=== PATIENT | female | born 1970 | race Caucasian/White ===

== ENCOUNTER → 2017-12-13 14:31 | Outpatient (CLI) | payer OTHER, SELFPAY ==
[2017-11-01 16:22] VITALS: BP 116/79; BMI 32.3
--- NOTE | 2017-12-13 14:35 | HPBI_ITS ---
MAMMOGRAPHY - BILATERAL SCREENING REASON FOR EXAM: Female, 47 years old. Routine annual screening examination. PERTINENT HISTORY: Mother with breast cancer. Grandmother with breast cancer. TECHNIQUE: Digital bilateral breast neva (3D mammographic acquisition) in the CC and MLO projections. 2-D mediolateral oblique (MLO) and craniocaudad (CC) views of both breasts were obtained. CAD: Full Field Digital Mammography with Computer Added Detection was performed. COMPARISON: Comparison is made with prior outside examination dated August 17, 2016. FINDINGS: Breast Composition: There are scattered areas of fibroglandular density. There are no dominant masses or suspicious calcifications. No other significant abnormalities are identified. There has been no significant change since the prior study. HPBI/SCREENING MAMM (CAD), BILAT IMPRESSION: Stable bilateral screening mammogram. Yearly follow-up mammogram recommended. (A) ASSESSMENT CATEGORY: BIRADS Category 1: Negative. A letter regarding these results will be sent to the patient by the facility within 30 days. Approximately 10% of breast cancers are not detected by mammography. A normal mammogram should not delay biopsy of a clinically suspicious abnormality. [id number] Electronically Signed: Moustapha Stanley MD at 15:31 EST Tel [phone], Service support ,
== END ==
PROVIDERS: Family Provider Family Medicine; PCP Family Medicine; Visit Provider Obstetrics & Gynecology
DX: Z12.31 Encounter for screening mammogram for malignant neoplasm of breast (principal)
CPT/HCPCS: 77063; 77067

== ENCOUNTER → 2019-01-19 15:20 | Outpatient (CLI) | payer OTHER, SELFPAY ==
--- NOTE | 2019-01-19 15:24 | BI_ITS ---
MAMMOGRAPHY - BILATERAL SCREENING 3-D CYNDI SYNTHESIS REASON FOR EXAM: Female, 48 years old. Bilateral Screening 3-D tomosynthesis PERTINENT HISTORY: Family history of breast cancer in mother. Used progesterone for 5 years. TECHNIQUE: 2-D mammograms and 3-D Cyndi synthesis of the breast (s) were performed. CAD was performed. COMPARISON: December 23, 2017, August 17, 2016 FINDINGS: The breast composition is almost entirely fat. Scattered benign calcifications are seen. No dense spiculated masses or suspicious microcalcifications are identified. No architectural distortion is identified. There is no skin thickening or retraction. There has been no significant change since the prior study. BI/SCREEN MAMM (CAD) W/CYNDI BILAT IMPRESSION: No mammographic signs of malignancy. Routine yearly mammograms recommended. ASSESSMENT CATEGORY: BIRADS Category 1: Negative. A letter regarding these results will be sent to the patient by the facility within 30 days. FOLLOW UP RECOMMENDATION: Yearly follow up mammogram recommended. (A) Approximately 10% of breast cancers are not detected by mammography. A normal mammogram should not delay biopsy of a clinically suspicious abnormality. Electronically Signed: Dontae Browning MD at 13:53 EDT , Service support ,
== END ==
PROVIDERS: Family Provider Family Medicine; PCP Family Medicine; Referring Provider Obstetrics & Gynecology; Visit Provider Obstetrics & Gynecology
DX: Z12.31 Encounter for screening mammogram for malignant neoplasm of breast (principal)
CPT/HCPCS: 77063; 77067

== ENCOUNTER → 2019-03-31 | Outpatient (CLI) | payer OTHER, SELFPAY ==
[2019-03-31 16:45] VITALS: BMI 32.3
[2019-03-31 21:50] LABS: Chlamydia Trachomatis by PCR Negative (Negative); Neisserai gonorrhoeae by PCR Negative (Negative); Probe Check PASS; Sample Adequacy Control PASS; Specimen Processing Control PASS
[2019-04-03 12:23] LABS: HPV APTIMA, High Risk Negative (Negative)
== END | disposition home or self-care (01) ==
PROVIDERS: Family Provider Family Medicine; PCP Family Medicine; Referring Provider Obstetrics & Gynecology; Visit Provider Obstetrics & Gynecology
DX: N89.8 Other specified noninflammatory disorders of vagina (principal); Z12.4 Encounter for screening for malignant neoplasm of cervix
CPT/HCPCS: 87491; 87591; 87624; 88175; G0145

== ENCOUNTER → 2019-04-04 | Outpatient (CLI) | payer OTHER, SELFPAY ==
[2019-03-31 16:45] VITALS: BMI 32.3
[2019-04-06 10:29] LABS: HIV - WCH Non-Reactive (Nonreactive)
[2019-04-06 14:07] LABS: HCV Quant. RNA PCR 20 IU/mL (.); HEPATITIS B SURFACE AG Negative (Negative); Hepatitis A IgM Antibody Negative (Negative); Hepatitis B Core AB IgM Negative (Negative)
[2019-04-07 12:04] LABS: HCV log 10 1.301 (.); Hep C Antibodies 0.1 s/co ratio (0.0-0.9); Testosterone Free 2.3 pg/mL (0.0-4.2)
[2019-04-10 03:31] LABS: Rapid Plasmin Reagin (RPR) NONREACTIVE (NONREACTIVE)
== END | disposition home or self-care (01) ==
LOC: LAB 08:33
PROVIDERS: Family Provider Family Medicine; PCP Family Medicine; Referring Provider Obstetrics & Gynecology; Visit Provider Obstetrics & Gynecology
DX: N89.8 Other specified noninflammatory disorders of vagina (principal); N95.1 Menopausal and female climacteric states
CPT/HCPCS: 36415; 80074; 84402; 86592; 86703; 87522

== ENCOUNTER → 2019-04-15 | Outpatient (CLI) | payer OTHER, SELFPAY ==
[2019-03-31 16:45] VITALS: BMI 32.3
[2019-04-18 03:06] LABS: HCV Quant. RNA PCR HCV Not Detected IU/mL (.)
== END | disposition home or self-care (01) ==
PROVIDERS: Family Provider Family Medicine; PCP Family Medicine; Referring Provider Obstetrics & Gynecology; Visit Provider Obstetrics & Gynecology
DX: A64 Unspecified sexually transmitted disease (principal)
CPT/HCPCS: 36415; 87522

== ENCOUNTER → 2019-07-14 16:16 | Outpatient (CLI) | payer OTHER, SELFPAY ==
[2019-03-31 16:45] VITALS: BMI 32.3
[2019-07-17 16:07] LABS: HCV Quant. RNA PCR HCV Not Detected IU/mL (.)
== END ==
PROVIDERS: Family Provider Family Medicine; PCP Family Medicine; Referring Provider Obstetrics & Gynecology; Visit Provider Obstetrics & Gynecology
DX: Z78.9 Other specified health status (principal)
CPT/HCPCS: 36415; 87522

== ENCOUNTER → 2020-01-22 14:36 | Outpatient (CLI) | payer OTHER, SELFPAY ==
[2019-03-31 16:45] VITALS: BMI 32.3
--- NOTE | 2020-01-22 14:59 | BI_ITS ---
MAMMOGRAPHY - BILATERAL SCREENING REASON FOR EXAM: Female, 49 years old. Routine annual screening examination. PERTINENT HISTORY: Mother with breast cancer. Grandmother with breast cancer. TECHNIQUE: Digital bilateral breast cyndi (3D mammographic acquisition) in the CC and MLO projections. 2-D mediolateral oblique (MLO) and craniocaudad (CC) views of both breasts were obtained. CAD: Full Field Digital Mammography with Computer Added Detection was performed. COMPARISON: Comparison is made with prior examination January 19, 2019 and December 13, 2017. FINDINGS: Breast Composition: There are scattered areas of fibroglandular density. There are no dominant masses or suspicious calcifications. Nipple piercings are seen. No other significant abnormalities are identified. There has been no significant change since the prior study. BI/SCREEN MAMM (CAD) W/CYNDI BILAT IMPRESSION: Stable bilateral screening mammogram. Yearly follow-up mammogram recommended. (A) ASSESSMENT CATEGORY: BIRADS Category 2: Benign. A letter regarding these results will be sent to the patient by the facility within 30 days. Approximately 10% of breast cancers are not detected by mammography. A normal mammogram should not delay biopsy of a clinically suspicious abnormality. [id number] Electronically Signed: Moustapha Stanley, at 15:35 EDT , Service support ,
== END ==
PROVIDERS: PCP Family Medicine; Referring Provider Obstetrics & Gynecology; Visit Provider Obstetrics & Gynecology
DX: Z12.31 Encounter for screening mammogram for malignant neoplasm of breast (principal)
CPT/HCPCS: 77063; 77067

== ENCOUNTER → 2020-02-10 15:14 | Outpatient (CLI) | payer OTHER, SELFPAY ==
[2019-03-31 16:45] VITALS: BMI 32.3
[2020-02-10 15:19] LABS: Bacteria 0 SEEN /hpf (None Seen); Mucous, Urine 0 SEEN /hpf (<or=2+); White Blood Cells 0 SEEN /hpf (0-5)
[2020-02-10 17:18] LABS: Color, Urine Yellow (Yellow); Glucose, Dipstick Normal (Normal); Ketone-Dipstick Negative (Negative); Leukocyte Esterase-Dipstick Negative /ul (Negative); Nitrite-Dipstick Negative (Negative); Occult Blood-Urine 150 /ul (Negative); Protein-Dipstick Negative (Negative); Urine Bilirubin Dipstick Negative (Negative); Urine Clarity Sl. Cloudy (Clear); Urine Urobilinogen Normal (Normal)
[2020-02-10 17:25] LABS: Absolute Lymphocyte Count 1.81 X10^3/uL (0.83-4.51); Absolute Neutrophil Count 4.8 X10^3/uL (2.0-7.7); Basophil# 0.05 X10^3/uL; Basophil% 0.7 % (0-1); Eosinophils% 1.3 % (0-5); Hematocrit 41.5 % (37-47); Hemoglobin 13.8 g/dL (12.0-15.0); Lymphocyte # 1.81 X10^3/ul (4.0); Lymphocyte % 24.3 % (19-41); Mean Corp Hgb Conc 33.3 g/dL (32-36); Mean Corpuscular Volume 90.2 fL (81-99); Monocyte# 0.64 X10^3/uL; Monocyte% 8.6 % (0-10); NRBC Flagged by Analyzer 0 % (0-5); Neutrophil # 4.82 X10^3/uL (2.7-7.7); Neutrophil % 64.8 % (47-70); Platelet Count 234 K/mm3 (150-450); RBC Distribution Width CV 11.8 % (11.6-14.6); RBC Distribution Width SD 38.5 fl (35.1-43.9); White Blood Count 7.4 K/mm3 (4.4-11.0)
[2020-02-10 17:32] LABS: Red Blood Cells-Urine 5-10 SEEN /hpf (0-5); Squamous Epithelial Cells - UA 0-5 SEEN /hpf (5-10)
[2020-02-10 17:33] LABS: Amorphous Sediment 1+ URATE
[2020-02-10 17:41] LABS: AST(SGOT) 27 U/L (15-37); Alanine Aminotransfer ALT/SGPT 61 U/L (13-56); Albumin, Serum 3.7 g/dL (3.2-5.0); Alkaline Phosphatase 101 U/L (45-117); Anion Gap 5 (5-15); BUN 11 mg/dL (7-18); BUN/Creat Ratio 12.7 RATIO (10-20); Calcium,Total 8.7 mg/dL (8.5-10.1); Chloride 108 mmol/L (98-107); Cholesterol 185 mg/dL (200); Creatinine, Serum 0.86 mg/dL (0.55-1.02); EST Glomerular Filtration Rate 75 mL/min (>60); Est Glom Filt Rate - Afr Amer 91 mL/min (>60); Globulin 3.6 g/dL (2.2-4.2); Glucose 105 mg/dL (74-106); High Density Lipoprotein 46 mg/dL; Potassium 3.7 mmol/L (3.5-5.1); Protein, Total 7.3 g/dL (6.4-8.2); Sodium Level 139 mmol/L (136-145); T4 Free Direct 0.92 ng/dL (0.76-1.46); Thyroid Stim Hormone (TSH) 1.43 uIU/mL (0.358-3.74); Triglycerides 67 mg/dL; Very Low Density Lipoprotein 13 mg/dL (5-40)
[2020-02-10 17:42] LABS: Hemoglobin A1c 5.5 % (4.2-6.3)
[2020-02-10 20:43] LABS: Microalbumin,Random Urine 10.1 mg/L (NO RANGE EST.); Microalbumin:Creatinine Ratio 7.6 mg/g CRE (<30 mg/g CRE)
== END ==
PROVIDERS: PCP Family Medicine; Referring Provider Family Medicine; Visit Provider Family Medicine
DX: E11.9 Type 2 diabetes mellitus without complications (principal); E04.2 Nontoxic multinodular goiter
CPT/HCPCS: 36415; 80053; 80061; 81001; 82043; 82570; 83036; 84439; 84443; 85025

== ENCOUNTER → 2020-02-12 14:11 | Outpatient (CLI) | payer OTHER, SELFPAY ==
[2019-03-31 16:45] VITALS: BMI 32.3
[2020-02-12 17:06] LABS: Chlamydia Trachomatis by PCR Negative (Negative); Neisserai gonorrhoeae by PCR Negative (Negative); Probe Check PASS; Sample Adequacy Control PASS; Specimen Processing Control PASS
[2020-02-12 18:20] LABS: HIV - WCH Non-Reactive (Nonreactive)
[2020-02-15 10:24] LABS: Hepatitis B Surface Antibody Non-Reactive; Hepatitis B Surface Antigen Non-Reactive (Nonreactive); Hepatitis C Antibody Non-Reactive (Nonreactive)
[2020-02-15 16:07] LABS: HCV Quant. RNA PCR HCV Not Detected IU/mL (.)
[2020-02-16 12:44] LABS: HSV 1 IgG < 0.91 index (0.00-0.90); HSV 2 IgG < 0.91 index (0.00-0.90)
[2020-02-18 00:57] LABS: Rapid Plasmin Reagin (RPR) NONREACTIVE (NONREACTIVE)
== END ==
PROVIDERS: Obstetrics & Gynecology; PCP Family Medicine; Referring Provider Family Medicine; Visit Provider Family Medicine
DX: R79.89 Other specified abnormal findings of blood chemistry (principal); Z11.3 Encounter for screening for infections with a predominantly sexual mode of transmission
CPT/HCPCS: 36415; 86592; 86695; 86696; 86703; 86706; 86803; 87340; 87491; 87522; 87591

== ENCOUNTER → 2020-02-17 15:21 | Outpatient (CLI) | payer OTHER, SELFPAY ==
[2019-03-31 16:45] VITALS: BMI 32.3
--- NOTE | 2020-02-17 15:25 | US_ITS ---
STUDY: THYROID ULTRASOUND REASON FOR EXAM: Female, 49 years old. NODULES TECHNIQUE: Ultrasound evaluation of the thyroid was performed with real-time and static stoner-scale imaging. COMPARISON: Comparison is made with prior nuclear medicine study of the thyroid dated February 09, 2014. FINDINGS: RIGHT LOBE: The right lobe of the thyroid gland is mildly enlarged and measures 5.3 cm x 1.8 cm x 2.0 cm. There is a homogeneous echotexture. There is a well-defined 8 mm x 6 mm x 7 mm hypoechoic solid nodule in the anterior upper pole of the right lobe. There is perinodular and intralobular nodular increased vascularity. LEFT LOBE: The left lobe of the thyroid gland measures 4.6 cm x 1.5 cm x 1.7 cm. There is a homogeneous echotexture. There is a 10 mm x 7 mm x 7 mm hypoechoic solid/cystic nodule in the midportion of the left lobe of the thyroid. Perinodular increased vascularity. ISTHMUS: The isthmus measures 2.0 mm. The regional lymph nodes are normal. US/Thyroid IMPRESSION: Enlargement of the right lobe of the thyroid. 8 mm x 7 mm x 6 mm well-defined hypoechoic solid nodule in the upper pole of the right lobe. 10 mm x 7 mm x 7 mm solid/cystic nodule in the midportion of the left lobe of the thyroid. Electronically Signed: Moustapha Stanley, at 16:03 EDT , Service support ,
== END ==
PROVIDERS: PCP Family Medicine; Referring Provider Family Medicine; Visit Provider Family Medicine
DX: E04.2 Nontoxic multinodular goiter (principal)
CPT/HCPCS: 76536

== ENCOUNTER → 2020-03-02 | Outpatient (CLI) | payer OTHER, SELFPAY ==
--- NOTE | 2020-03-02 | ASPS_PTH ---
PATIENT: FLAQUITO WILD [facility] U#:[id number] AGE/SX: 49/F ROOM: RE03/02/[address]: Dr. Demian Hermosillo MD : 1970 BED: DIS: 03/02/2020 SPEC #: [id number] RECD: 03/03/20 13:45 STATUS: STACY JADIEL #: [id number] CHIDI: 03/02/20 00:[address]: Demian Hermosillo DEPT: CYTOLOGY RECD BY: Yunier Lai ENTERED: 03/03/20 13:46 SP TYPE: ASPIRATION OTHR DR: Dr. Kameron Wright MD Tissues: Thyroid gland, NOS Procedures: Special Stain Group II Cytology Other HEADER OPERATION: Ultrasound-guided fine needle aspiration left thyroid PRE-OP DIAGNOSIS: Left thyroid nodule TISSUE SUBMITTED: Left thyroid tissue fine needle aspiration DIAGNOSIS CYTOLOGY Fine needle aspiration, left thyroid nodule (smears): Inadequate for evaluation. See comment. AM:shade 03/04/20 COMMENT The specimen contains blood and scattered white blood cells. Clinical correlation is suggested. CYTOLOGY STUDY Slides are reviewed. CYTOLOGY GROSS Received are eight smears labeled with the patient's name and designated per the requisition as left thyroid tissue. Submitted for staining. / shade 03/03/20 TC:5 CPT: 51813
[2020-03-02 15:33] VITALS: BMI 32.3
== END | disposition home or self-care (01) ==
LOC: LABSPEC 03-03 10:56
PROVIDERS: PCP Family Medicine; Referring Provider Surgery; Visit Provider Surgery
DX: E04.1 Nontoxic single thyroid nodule (principal)
CPT/HCPCS: 88161; 88313

== ENCOUNTER → 2020-03-09 12:06 | Outpatient (CLI) | payer OTHER, SELFPAY ==
[2020-03-02 15:33] VITALS: BMI 32.3
--- NOTE | 2020-03-09 | ASPIG_PTH ---
PATIENT: FLAQUITO WILD LOC: [facility]#:[id number] AGE/SX: 54/F ROOM: RE03/09/[address]: Dr. Demian Hermosillo MD : 1970 BED: DIS: SPEC #: [id number] RECD: 03/09/20 13:19 STATUS: STACY JADIEL #: [id number] CHIDI: 03/09/20 00:[address]: Demian Hermosillo DEPT: CYTOLOGY RECD BY: Yunier Lai ENTERED: 03/09/20 13:20 SP TYPE: ASP OUT OTHR DR: Dr. Kameron Wright MD Tissues: Thyroid gland, NOS Procedures: FNA Specimen Adequacy Special Stain Group II Surgery Specimen Level IV Cytology Other HEADER OPERATION: Ultrasound-guided left thyroid biopsy PRE-OP DIAGNOSIS: Left thyroid nodule TISSUE SUBMITTED: Left thyroid nodule DIAGNOSIS CYTOLOGY Left thyroid nodule, ultrasound-guided FNA (cytospin, smears and cell block): A few clusters of benign follicular cells and small amount of colloid noted. See comment. SJ:shade 03/10/20 COMMENT The specimen is evaluated at the time of FNA by Dr. Hale. Immediate Evaluation: Set 1 - Predominantly blood. A few follicular cells noted. Set 2 - Predominantly blood. The specimen is limited in evaluation due to lack of adequate number of follicular cells. Correlation with clinical, radiologic findings and appropriate follow up are necessary. Please make reference to previous specimen ([id number]) fine needle aspiration, left thyroid nodule with diagnosis of inadequate for evaluation. CYTOLOGY STUDY Slides are reviewed. CYTOLOGY GROSS Set 1 - 3 passes - Received is 0.3 ml of bloody fluid labeled with the patient's name, and designated left thyroid. Six imprints and five paps are made from the submitted fluid and the rest is added to CytoLyt for cell block preparation. Submitted for cytology study. Set 2 - 1 pass - Received is 0.1 ml of bloody fluid labeled with the patient's name, and designated left thyroid. Two imprints and one pap are made from the submitted fluid and the rest is added to CytoLyt for cell block preparation. Submitted for cytology study. / TERESE:shade 03/09/20 TC: Cannot code CPT: 47563, 21606, 20742, 18979, 80960
--- NOTE | 2020-03-09 12:15 | US_ITS ---
CLINICAL HISTORY: Female, 49 years old. Left thyroid nodule. PROCEDURE: BIOPSY - left thyroid nodule. BIOPSY GUIDANCE - Ultrasound TECHNIQUE: (All elements of maximal sterile barrier technique followed, including US elements as applicable) Under direct sonographic guidance, the surgeon performed percutaneous biopsy of the 1.2 cm x 0.9 cm x 0.7 cm nodule in the left lobe of the thyroid. US/FNA 1st Biopsy w/ US IMPRESSION: Successful ultrasound-guided biopsy of the nodule in the left lobe of the thyroid. Electronically Signed: Moustapha Stanley, at 13:23 EDT , Service support ,
--- NOTE | 2020-03-09 13:21 | OP.PCM_ITS ---
Problem List (1) Multinodular goiter Status: Acute Report of Operation Date of Procedure: 03/09/20 Pre-Operative Diagnosis: Multinodular goiter Post-Operative Diagnosis: Same Surgery/Procedure Performed:: Ultrasound-guided fine-needle aspiration of dominant left-sided nodule Type of Anesthesia:: Local Description of Procedure: Patient was laying in the supine position. Ultrasound of left side of the neck revealed the nodule in question. Neck was prepped with chlorhexidine. 1% lidocaine plain was injected. Under ultrasound guidance 4 passes with a 22-gaug e needle were performed. I started to get a small hematoma with this and determined that this was the limitations of fine-needle aspirations today. Pathologist was located within the room we had one slide that had a few follicular cells but other than that not many. At this point I am not going to attempt to do anymore fine-needle aspirations the nodule is actually smaller than it once was when we started this. If the fine-needle aspiration is indeterminate repeat ultrasound in 6 months will be performed. If it is benign and a repeat ultrasound will be performed in 1 year. And obviously if is malignant then we will sit down and have a discussion with regards to surgery. - Admit VTE Documentation VTE Present on Admission: No VTE Mechan Device Prophylaxis: None VTE Pharm Prophylaxis ordered?: No Reason prophylaxis not ordered:: Treatment Not Indicated CF Procedures [id number]: Other Procedure See Report - [id number]
== END ==
PROVIDERS: PCP Family Medicine; Referring Provider Surgery; Visit Provider Surgery
DX: E04.2 Nontoxic multinodular goiter (principal)
CPT/HCPCS: 10005; 88161; 88172; 88305; 88313

== ENCOUNTER → 2020-04-22 14:55 | Outpatient (CLI) | payer OTHER, SELFPAY ==
[2020-03-30 16:35] VITALS: BMI 32.8
--- NOTE | 2020-04-22 14:56 | ECHOCS_ITS ---
Reason For Study: Palpitations Procedure This was a 2D Doppler, Color Flow transthoracic echocardiogram. The study was technically difficult. Contrast injection was performed. Exam performed in department. Left Ventricle Normal LV size. Left ventricular systolic function is normal. The estimated ejection fraction is 55 %. No evidence for diastolic dysfunction. No regional wall motion abnormalities noted. Right Ventricle Normal RV size. Normal systolic function. Atria Normal left atrium. Normal right atrium. Mitral Valve Normal mitral valve. Tricuspid Valve Normal tricuspid valve. Aortic Valve The aortic valve is not well visualized. Pulmonic Valve Normal pulmonic valve. Great Vessels Normal aortic root. Pericardium/Pleural No pericardial effusion. Medication 22 gauge I.V. with prn adaptor inserted into right arm. Diluted definity 2ml given slow IV push to enhance endocardial definition. MMode/2D Measurements & Calculations LVIDd: 4.9 cm IVSd: 0.89 cm LA dimension: 3.6 cm LVIDs: 3.8 cm LVPWd: 0.98 cm RVDd: 2.9 cm FS: 22.4 % LAV(MOD-bp): 34.8 ml LA A4 area: 15.9 cm2 LAV(MOD-bp) Indexed: 18.2 ml/m2 LAV(MOD-sp2): 31.3 ml LAV(MOD-sp4): 39.7 ml Time Measurements MV dec time: 0.24 sec Doppler Measurements & Calculations MV E max juan antonio: 96.6 cm/sec Lat Peak E' Juan Antonio: 14.7 cm/sec Med Peak E' Juan Antonio: 15.4 cm/sec MV A max juan antonio: 78.7 cm/sec E/E' lat: 6.6 E/E' med: 6.3 MV E/A: 1.2 MV V2 max: 123.3 cm/sec MV P1/2t max juan antonio: 125.2 cm/sec Ao V2 max: 171.4 cm/sec MV max P.1 mmHg MV P1/2t: 62.5 msec Ao max P.8 mmHg MV V2 mean: 57.3 cm/sec MV dec slope: 586.5 cm/sec2 MV mean P.6 mmHg MV V2 VTI: 34.4 cm MVA(P1/2t): 3.5 cm2 LV V1 max: 144.5 cm/sec PA V2 max: 104.0 cm/sec LV V1 max P.4 mmHg Interpretation Summary Normal LV size. Left ventricular systolic function is normal. The estimated ejection fraction is 55 %. No evidence for diastolic dysfunction. Contrast injection was performed. Ordering Physician: Jung Coronel Referring Physician: Kameron Wright Performed By: Compa Giles RCS
[2020-04-23 08:11] LABS: SARS-COV-2 TOTAL ABS Nonreactive (Nonreactive)
== END ==
PROVIDERS: PCP Family Medicine; Referring Provider Internal Medicine Cardiovascular Disease; Visit Provider Internal Medicine Cardiovascular Disease
DX: R00.2 Palpitations (principal)
CPT/HCPCS: 86769; 93306; Q9957; A4216; C8929

== ENCOUNTER → 2020-04-29 15:00 | Outpatient (CLI) | payer OTHER, SELFPAY ==
[2020-03-30 16:35] VITALS: BMI 32.8
== END ==
PROVIDERS: PCP Family Medicine; Referring Provider Internal Medicine Cardiovascular Disease; Visit Provider Internal Medicine Cardiovascular Disease
DX: R00.2 Palpitations (principal)
CPT/HCPCS: 93226

== ENCOUNTER → 2020-07-04 16:34 | Outpatient (CLI) | payer OTHER, SELFPAY ==
[2020-03-30 16:35] VITALS: BMI 32.8
[2020-07-04 18:44] LABS: AST(SGOT) 18 U/L (15-37); Alanine Aminotransfer ALT/SGPT 35 U/L (13-56); Albumin, Serum 3.6 g/dL (3.2-5.0); Alkaline Phosphatase 98 U/L (45-117); Anion Gap 4 (5-15); BUN 19 mg/dL (7-18); BUN/Creat Ratio 22.9 RATIO (10-20); Calcium,Total 8.5 mg/dL (8.5-10.1); Chloride 110 mmol/L (98-107); Creatinine, Serum 0.83 mg/dL (0.55-1.02); EST Glomerular Filtration Rate 78 mL/min (>60); Est Glom Filt Rate - Afr Amer 94 mL/min (>60); Globulin 3.6 g/dL (2.2-4.2); Glucose 95 mg/dL (74-106); Potassium 3.7 mmol/L (3.5-5.1); Protein, Total 7.2 g/dL (6.4-8.2); Sodium Level 141 mmol/L (136-145)
== END ==
PROVIDERS: PCP Family Medicine; Referring Provider Family Medicine; Visit Provider Family Medicine
DX: R79.89 Other specified abnormal findings of blood chemistry (principal)
CPT/HCPCS: 36415; 80053

== ENCOUNTER → 2020-08-17 14:48 | Outpatient (CLI) | payer OTHER, SELFPAY ==
[2020-03-30 16:35] VITALS: BMI 32.8
--- NOTE | 2020-08-17 14:50 | US_ITS ---
STUDY: THYROID ULTRASOUND REASON FOR EXAM: Female, 49 years old. Nodules TECHNIQUE: Ultrasound evaluation of the thyroid was performed with real-time and static stoner-scale imaging. COMPARISON: Comparison is made with prior examination of 02/17/2020. FINDINGS: RIGHT LOBE: The right lobe of the thyroid gland measures 4.9 cm x 2.1 cm x 2.1 cm. There is a homogeneous echotexture. There is a 2.5 cm x 1.4 cm x 1.1 cm predominantly hypoechoic solid nodule in the midportion of the right lobe. Increased vascularity is seen. A biopsy is recommended for further evaluation. LEFT LOBE: The left lobe of the thyroid gland measures 4.4 cm x 1.6 x 1.3 cm. There is a homogeneous echotexture. There are no demonstrated solid, cystic or complex lesions. The previously seen hypoechoic nodule in the midportion of the left lobe is not seen at this time. ISTHMUS: The isthmus measures 4.0 mm. The regional lymph nodes are normal. US/Thyroid IMPRESSION: 2.5 cm x 1.4 cm x 1.1 cm predominantly hypoechoic solid nodule in the midportion of the right lobe of the thyroid. A biopsy is recommended for further evaluation. Electronically Signed: Moustapha Stanley, at 15:39 EDT , Service support ,
== END ==
PROVIDERS: PCP Family Medicine; Referring Provider Surgery; Visit Provider Surgery
DX: E04.2 Nontoxic multinodular goiter (principal)
CPT/HCPCS: 76536

== ENCOUNTER → 2020-08-24 | Outpatient (CLI) | payer OTHER, SELFPAY ==
--- NOTE | 2020-08-24 15:00 | ASPS_PTH ---
PATIENT: FLAQUITO WILD LOC: [facility] U#:[id number] AGE/SX: 49/F ROOM: RE08/24/[address]: Dr. Kameron Wright MD : 1970 BED: DIS: 08/24/2020 SPEC #: [id number] RECD: 08/24/20 15:41 STATUS: STACY RELouie #: [id number] CHIDI: 08/24/20 15:[address]: Demian Hermosillo DEPT: CYTOLOGY RECD BY: Elizabeth Stiles ENTERED: 08/25/20 07:52 SP TYPE: ASPIRATION OTHR DR: Dr. Kameron Wright MD Tissues: Thyroid gland, NOS Procedures: Special Stain Group II Cytology Other Comments: @ Ordering doctor for SSII edited from to DR.DPEABO Owens by KATIE at 08/25/20 1306 @ Ordering doctor for CYOTHER edited from to DR.DPEABO Owens by KATIE at 08/25/20 1306 @ Submitting doctor edited from to DR.DPEABO Owens by KATIE at 08/25/20 1306 HEADER OPERATION: Ultrasound-guided fine needle aspiration right thyroid PRE-OP DIAGNOSIS: Multinodular goiter TISSUE SUBMITTED: Fine needle aspiration right thyroid slides x10 DIAGNOSIS CYTOLOGY Right thyroid nodule, ultrasound-guided FNA (smears): Consistent with benign follicular/colloid nodule. Adequate for evaluation. TERESE:shade 08/26/20 COMMENT Please make reference to previous specimens ([id number]) fine needle aspiration, left thyroid nodule with diagnosis of inadequate for evaluation and ([id number]) left thyroid nodule, ultrasound-guided FNA with diagnosis of a few clusters of benign follicular cells and small amount of colloid is noted. CYTOLOGY STUDY Slides are reviewed. CYTOLOGY GROSS Received are ten smears labeled with the patient's name and designated per the requisition as right thyroid. Submitted for staining. / shade 08/25/20 TC:5 CPT: 33160
== END | disposition home or self-care (01) ==
LOC: LABSPEC 15:52
PROVIDERS: PCP Family Medicine; Referring Provider Family Medicine; Visit Provider Family Medicine
DX: E04.2 Nontoxic multinodular goiter (principal)
CPT/HCPCS: 88161; 88313

== ENCOUNTER → 2020-12-13 16:39 | Outpatient (CLI) | payer OTHER, SELFPAY ==
[2020-12-13 16:00] VITALS: BMI 34.3
[2020-12-13 18:21] LABS: HIV - WCH Non-Reactive (Nonreactive)
[2020-12-15 01:42] LABS: Rapid Plasmin Reagin (RPR) NONREACTIVE (NONREACTIVE)
[2020-12-15 20:08] LABS: HCV Quant. RNA PCR HCV Not Detected IU/mL (.)
[2020-12-16 01:30] LABS: HSV 2 IgG < 0.91 index (0.00-0.90)
[2020-12-16 04:08] LABS: Chlamydia By Nucleic Acid AMP Negative (Negative)
[2020-12-16 12:35] LABS: Gonococcus By Nucleic Acid AMP Negative (Negative)
== END ==
PROVIDERS: PCP Family Medicine; Referring Provider Obstetrics & Gynecology; Visit Provider Obstetrics & Gynecology
DX: Z11.3 Encounter for screening for infections with a predominantly sexual mode of transmission (principal)
CPT/HCPCS: 36415; 86592; 86695; 86696; 86703; 87491; 87522; 87591

== ENCOUNTER → 2021-01-06 16:19 | Outpatient (CLI) | payer OTHER, SELFPAY ==
[2020-12-13 16:00] VITALS: BMI 34.3
--- NOTE | 2021-01-06 16:24 | RAD_ITS ---
EXAM: XR SACRUM AND COCCYX, 2 OR MORE VIEWS : 1970 CLINICAL INDICATION: LOW BACK PAIN TECHNIQUE: Frontal and lateral views of the sacrum and coccyx. This report was created using [employer] report [employer] technology. COMPARISON: None. FINDINGS: SACRUM/COCCYX: Unremarkable. No displaced fracture. No destructive or sclerotic lesions. Note that overlapping bowel shadows may however obscure fine detail in the frontal view. Sacroiliac joints are unremarkable. SOFT TISSUES: Unremarkable. No soft tissue swelling or gas. RAD/S-I Jts 3 or More Views IMPRESSION: Unremarkable sacroiliac joints. at 0645 Reported and signed by: Luis Young MD Electronically Signed: Luis Young MD at 6:44 EST Tel , Service support ,
--- NOTE | 2021-01-06 16:24 | RAD_ITS ---
HISTORY: LOW BACK PAIN COMPARISON: None FINDINGS: # of images incl. paperwork: 4 XR Spine Lumbar Min 4 Views: Lumbar vertebral bodies are normal in height. Lumbar disc spaces are well maintained. No acute lumbar spine fracture or subluxation. No significant degenerative change. RAD/L/S Spine Min 4 Views IMPRESSION: No acute lumbar spine fracture or subluxation. at 0646 Reported and signed by: Lusi Young MD Electronically Signed: Luis Young MD at 6:45 EST Tel , Service support ,
== END ==
PROVIDERS: PCP Family Medicine; Referring Provider Family Medicine; Visit Provider Family Medicine
DX: M54.5 Low back pain (principal)
CPT/HCPCS: 72110; 72202

== ENCOUNTER → 2021-01-07 09:57 | Outpatient (CLI) | payer OTHER, SELFPAY ==
[2020-12-13 16:00] VITALS: BMI 34.3
[2021-01-07 10:32] LABS: Absolute Lymphocyte Count 1.64 X10^3/uL (0.83-4.51); Absolute Neutrophil Count 6.8 X10^3/uL (2.0-7.7); Basophil# 0.04 X10^3/uL; Basophil% 0.4 % (0-1); Eosinophil# 0.02 X10^3/uL; Eosinophils% 0.2 % (0-5); Hematocrit 40.2 % (37-47); Hemoglobin 13.7 g/dL (12.0-15.0); Lymphocyte # 1.64 X10^3/ul (4.0); Lymphocyte % 17.5 % (19-41); Mean Corp Hgb Conc 34.1 g/dL (32-36); Mean Corpuscular Hgb 29.7 pg (27.0-32.0); Mean Corpuscular Volume 87.2 fL (81-99); Mean Platelet Vol. 10.5 fl (6.2-12.0); Monocyte# 0.83 X10^3/uL; Monocyte% 8.9 % (0-10); NRBC Flagged by Analyzer 0 % (0-5); Neutrophil # 6.78 X10^3/uL (2.7-7.7); Neutrophil % 72.6 % (47-70); Platelet Count 264 K/mm3 (150-450); RBC Distribution Width CV 11.9 % (11.6-14.6); RBC Distribution Width SD 37.4 fl (35.1-43.9); Red Blood Count 4.61 M/mm3 (4.2-5.4); White Blood Count 9.4 K/mm3 (4.4-11.0)
[2021-01-07 10:54] LABS: ALB/GLOB Ratio 0.9 RATIO (0.9-2.4); AST(SGOT) 21 U/L (15-37); Alanine Aminotransfer ALT/SGPT 41 U/L (13-56); Albumin, Serum 3.6 g/dL (3.2-5.0); Alkaline Phosphatase 97 U/L (45-117); Anion Gap 4 (5-15); BUN 12 mg/dL (7-18); Calcium,Total 8.8 mg/dL (8.5-10.1); Chloride 109 mmol/L (98-107); Cholesterol 188 mg/dL (200); Creatinine, Serum 0.75 mg/dL (0.55-1.02); EST Glomerular Filtration Rate 88 mL/min (>60); Est Glom Filt Rate - Afr Amer 106 mL/min (>60); Globulin 3.8 g/dL (2.2-4.2); Glucose 100 mg/dL (74-106); High Density Lipoprotein 63 mg/dL; Potassium 3.6 mmol/L (3.5-5.1); Protein, Total 7.4 g/dL (6.4-8.2); Sodium Level 140 mmol/L (136-145); Triglycerides 57 mg/dL; Very Low Density Lipoprotein 11 mg/dL (5-40)
== END ==
PROVIDERS: PCP Family Medicine; Visit Provider Family Medicine
DX: E66.9 Obesity, unspecified (principal)
CPT/HCPCS: 36415; 80053; 80061; 85025

== ENCOUNTER → 2021-02-10 13:46 | Outpatient (CLI) | payer OTHER, SELFPAY ==
[2020-12-13 16:00] VITALS: BMI 34.3
--- NOTE | 2021-02-10 13:54 | BI_ITS ---
MAMMOGRAPHY - BILATERAL SCREENING REASON FOR EXAM: Female, 50 years old. Routine annual screening examination. PERTINENT HISTORY: Mother with breast cancer. Grandmother with breast cancer. TECHNIQUE: Digital bilateral breast cyndi (3D mammographic acquisition) in the CC and MLO projections. 2-D mediolateral oblique (MLO) and craniocaudad (CC) views of both breasts were obtained. CAD: Full Field Digital Mammography with Computer Added Detection was performed. COMPARISON: Comparison is made with prior examination dated 01/22/2020 and 01/19/2019. FINDINGS: Breast Composition: There are scattered areas of fibroglandular density. There are no dominant masses or suspicious calcifications. No other significant abnormalities are identified. There has been no significant change since the prior study. BI/SCRN MAMM (CAD)W/CYNDI BILAT IMPRESSION: Stable bilateral screening mammogram. Yearly follow-up mammogram recommended. (A) ASSESSMENT CATEGORY: BIRADS Category 1: Negative. A letter regarding these results will be sent to the patient by the facility within 30 days. Approximately 10% of breast cancers are not detected by mammography. A normal mammogram should not delay biopsy of a clinically suspicious abnormality. [id number] Electronically Signed: Moustapha Stanley MD at 11:26 EDT , Service support ,
== END ==
PROVIDERS: PCP Family Medicine; Referring Provider Obstetrics & Gynecology; Visit Provider Obstetrics & Gynecology
DX: Z12.31 Encounter for screening mammogram for malignant neoplasm of breast (principal)
CPT/HCPCS: 77063; 77067

== ENCOUNTER → 2021-03-18 11:04 | Outpatient (CLI) | payer OTHER, SELFPAY ==
[2020-12-13 16:00] VITALS: BMI 34.3
[2021-03-18 12:57] LABS: Hepatitis B Surface Antigen Non-Reactive (Nonreactive)
[2021-03-22 03:14] LABS: QNTFERON TB Mitogen Value > 10.00 IU/mL (.); QNTFERON TB Nil Value 0 IU/mL (.); QNTFERON TB1+ Ag Value 0 IU/mL (.); QNTFERON TB2+ Ag Value 0.02 IU/mL (.)
[2021-03-22 08:51] LABS: QNTIFERON TB Positive Criteria Negative (Negative)
== END ==
PROVIDERS: PCP Family Medicine; Referring Provider Physician Assistant Medical; Visit Provider Physician Assistant Medical
DX: L40.0 Psoriasis vulgaris (principal); Z79.899 Other long term (current) drug therapy
CPT/HCPCS: 36415; 86480; 87340

== ENCOUNTER → 2021-09-22 | Outpatient (CLI) | payer OTHER, SELFPAY | END | disposition home or self-care (01) | PROVIDERS: PCP Family Medicine; Visit Provider Family Medicine | DX: R30.0 Dysuria (principal) | CPT/HCPCS: 87086; 87088 ==

== ENCOUNTER 2021-12-06 15:28 | Outpatient (CLI) | payer OTHER, SELFPAY ==
--- NOTE | 2021-12-06 15:32 | US_ITS ---
INDICATION: goiter EXAMINATION: Ultrasound US Thyroid (eg thyroid, parathyroid, parotid) TECHNIQUE: Rg scale and color doppler imaging was performed of the thyroid gland. COMPARISON: None. FINDINGS: RIGHT THYROID LOBE: 4.3 x 1.4 x 1.6 cm. There is heterogeneous echotexture, no abnormal blood flow.. [There is a circumscribed hypoechoic nodule in the RIGHT thyroid lobe, measuring approximately 11 x 9.8 x 6.0 mm. Although an irregular shaped poorly defined nodule was present in a similar position on prior exam, the current nodule is well-circumscribed in comparison to the previous nodule. No abnormal vascularity recommended. LEFT THYROID LOBE: 4.3 x 1.5 x 1.1 cm. There is heterogeneous echotexture. No abnormal blood flow. [No thyroid nodules are present. ISTHMUS: 3 mm. No thyroid nodules are present. US/Thyroid IMPRESSION: 1. Well-circumscribed solitary nodule noted in the RIGHT thyroid lobe, measuring 11 x 9.8 x 6.0 mm. This is in similar position of a nodule on prior exam, however the current nodule is well-circumscribed without abnormal blood flow noted. No other nodules evident. 2. Nodule is Moderately Suspicious: FNA if ? 1.5 cm; Follow if ? 1 cm at 1, 2, 3, and 5 y. Recommend follow-up in approximately 6 months Electronically Signed: Frank Baum MD at 23:47 EST ,
== END 2021-12-06 23:59 | disposition short-term general hospital (02) ==
LOC: US 15:31
PROVIDERS: PCP Family Medicine; Referring Provider Surgery; Visit Provider Surgery
DX: E04.2 Nontoxic multinodular goiter (principal)
CPT/HCPCS: 76536

== ENCOUNTER 2021-12-26 17:01 | Outpatient (CLI) | payer OTHER, SELFPAY ==
[2021-12-28 22:07] LABS: Chlamydia By Nucleic Acid AMP Negative (Negative)
[2021-12-29 11:20] LABS: Gonococcus By Nucleic Acid AMP Negative (Negative)
[2022-01-01 13:24] LABS: HPV APTIMA, High Risk Negative (Negative)
== END 2021-12-26 23:59 | disposition home or self-care (01) ==
PROVIDERS: PCP Family Medicine; Visit Provider Obstetrics & Gynecology
DX: Z11.3 Encounter for screening for infections with a predominantly sexual mode of transmission (principal); Z12.4 Encounter for screening for malignant neoplasm of cervix; N89.8 Other specified noninflammatory disorders of vagina
CPT/HCPCS: 87070; 87205; 87491; 87591; 87624; 88175; G0145

== ENCOUNTER 2021-12-29 14:44 | Outpatient (CLI) | payer OTHER, SELFPAY ==
[2021-12-29 16:05] LABS: Estradiol 375.7 pg/mL; Follicle Stimulating Hormone 8.2 mIU/mL
[2021-12-29 16:38] LABS: T4 Total, Thyroxin 9.1 ug/dL (4.8-13.9); Thyroid Stim Hormone (TSH) 2.11 uIU/mL (0.358-3.74)
== END 2021-12-29 23:59 | disposition home or self-care (01) ==
LOC: LAB 14:46
PROVIDERS: Surgery; PCP Family Medicine; Visit Provider Obstetrics & Gynecology
DX: L68.0 Hirsutism (principal); E04.2 Nontoxic multinodular goiter
CPT/HCPCS: 36415; 82627; 82670; 83001; 84436; 84443; 82626

== ENCOUNTER → 2022-02-23 | Outpatient (CLI) | payer OTHER, SELFPAY ==
--- NOTE | 2022-02-23 15:19 | BI_ITS ---
MAMMOGRAPHY - BILATERAL SCREENING 3-D TOMOSYNTHESIS REASON FOR EXAM: Female, 51 years old. breast cancer screening PERTINENT HISTORY: No significant family history. TECHNIQUE: 2-D mammograms and 3-D Tomosynthesis of the breast (s) were performed. CAD was performed. COMPARISON: 02/10/2021 FINDINGS: The breast composition is composed of scattered fibroglandular density. Scattered benign calcifications are seen. No dense spiculated masses or suspicious microcalcifications are identified. No architectural distortion is identified. There is no skin thickening or retraction. There has been no significant change since the prior study. BI/SCRN MAMM (CAD)W/CYNDI BILAT IMPRESSION: No mammographic signs of malignancy. Routine yearly mammograms recommended. ASSESSMENT CATEGORY: BIRADS Category 1: Negative. A letter regarding these results will be sent to the patient by the facility within 30 days. FOLLOW UP RECOMMENDATION: Yearly follow up mammogram recommended. (A) Approximately 10% of breast cancers are not detected by mammography. A normal mammogram should not delay biopsy of a clinically suspicious abnormality. Electronically Signed: Frank Blair MD at 16:51 EDT ,
== END | disposition home or self-care (01) ==
LOC: OPBI 15:18
PROVIDERS: PCP Family Medicine; Visit Provider Obstetrics & Gynecology
DX: Z12.31 Encounter for screening mammogram for malignant neoplasm of breast (principal)
CPT/HCPCS: 77063; 77067

== ENCOUNTER → 2022-03-16 | Outpatient (CLI) | payer OTHER, SELFPAY ==
[2022-03-19 15:08] LABS: QNTFERON TB Mitogen Value > 10.00 IU/mL (.); QNTFERON TB Nil Value 0.02 IU/mL (.); QNTFERON TB1+ Ag Value 0.02 IU/mL (.); QNTFERON TB2+ Ag Value 0.03 IU/mL (.)
[2022-03-19 16:37] LABS: Hepatitis B Core Ab Total Negative (Negative); QNTIFERON TB Positive Criteria Negative (Negative)
== END | disposition home or self-care (01) ==
LOC: MTLAB 15:19
PROVIDERS: PCP Family Medicine; Referring Provider Physician Assistant Medical; Visit Provider Physician Assistant Medical
DX: L40.0 Psoriasis vulgaris (principal); Z79.899 Other long term (current) drug therapy
CPT/HCPCS: 36415; 86480; 86704

== ENCOUNTER → 2022-12-05 | Outpatient (CLI) | payer OTHER, SELFPAY ==
--- NOTE | 2022-12-05 17:30 | US_ITS ---
EXAM: US SOFT TISSUES HEAD AND NECK, THYROID CLINICAL INDICATION: Goiter TECHNIQUE: Rg scale and color doppler imaging was performed of the thyroid gland. This report was created using [employer] report generation technology. COMPARISON: US Thyroid dated 12/06/2021 FINDINGS: LEFT THYROID LOBE: Left thyroid lobe measures 4.2 x 1.5 x 1.2 cm. No definable nodule. Homogeneous echotexture with normal vascularity. RIGHT THYROID LOBE: Right thyroid lobe measures 4.1 x 1.5 x 1.6 cm. Stable 11 mm right thyroid nodule which is solid in nature, well-defined, wider than tall and without microcalcification. TI-RADS points: 3. TI-RADS category: TR3. This nodule is mildly suspicious but no FNA or follow-up is necessary given the small size of this nodule. Homogeneous echotexture with normal vascularity. ISTHMUS: Isthmus measures 2.2 mm in AP dimension. No thyroid nodules are present. US/Thyroid IMPRESSION: Stable right thyroid nodule. Electronically Signed: Jason Holder MD at 9:27 EST ,
== END | disposition home or self-care (01) ==
PROVIDERS: PCP Family Medicine; Visit Provider Surgery
DX: E04.2 Nontoxic multinodular goiter (principal)
CPT/HCPCS: 76536

== ENCOUNTER → 2022-12-27 | Outpatient (CLI) | payer OTHER, SELFPAY ==
[2022-12-31 22:07] LABS: Chlamydia By Nucleic Acid AMP Negative (Negative)
[2022-12-31 22:43] LABS: Gonococcus By Nucleic Acid AMP Negative (Negative)
[2023-01-04 03:07] LABS: HPV Genotype 16, Aptima Negative (Negative)
[2023-01-04 08:27] LABS: HPV APTIMA, High Risk Positive (Negative); HPV Genotype 18,45 Aptima Negative (Negative)
== END | disposition home or self-care (01) ==
LOC: LABSPEC 16:30
PROVIDERS: PCP Family Medicine; Referring Provider Obstetrics & Gynecology; Visit Provider Obstetrics & Gynecology
DX: Z11.3 Encounter for screening for infections with a predominantly sexual mode of transmission (principal)
CPT/HCPCS: 87491; 87591; 87624; 88175; G0145

== ENCOUNTER → 2022-12-29 | Outpatient (CLI) | payer OTHER, SELFPAY ==
[2022-12-29 12:43] LABS: Free T3 2.3 pg/mL (2.18-3.98); T4 Total, Thyroxin 8.1 ug/dL (4.8-13.9); Thyroid Stim Hormone (TSH) 1.66 uIU/mL (0.358-3.74)
[2022-12-30 09:12] LABS: HSV 1 IgG 6.67 index (0.00-0.90); HSV 2 IgG < 0.91 index (0.00-0.90)
[2022-12-31 09:58] LABS: HIV - WCH Non-Reactive (Nonreactive); Hepatitis B Surface Antigen Non-Reactive (Nonreactive); Hepatitis C Antibody Non-Reactive (Nonreactive); Syphilis Antibodies Non-reactive
== END | disposition home or self-care (01) ==
LOC: LAB 11:11
PROVIDERS: Obstetrics & Gynecology; PCP Family Medicine; Referring Provider Surgery; Visit Provider Surgery
DX: Z11.3 Encounter for screening for infections with a predominantly sexual mode of transmission (principal); E04.1 Nontoxic single thyroid nodule
CPT/HCPCS: 36415; 84436; 84443; 84481; 86695; 86696; 86703; 86780; 86803; 87340

== ENCOUNTER → 2023-03-01 | Outpatient (CLI) | payer OTHER, SELFPAY ==
--- NOTE | 2023-03-01 15:41 | BI_ITS ---
MAMMOGRAPHY - BILATERAL SCREENING REASON FOR EXAM: Female, 52 years old. Routine annual screening examination. PERTINENT HISTORY: Mother with breast cancer. Grandmother with breast cancer. TECHNIQUE: Digital bilateral breast cyndi (3D mammographic acquisition) in the CC and MLO projections. 2-D mediolateral oblique (MLO) and craniocaudad (CC) views of both breasts were obtained. CAD: Full Field Digital Mammography with Computer Added Detection was performed. COMPARISON: Comparison is made with prior examination February 23, 2022 and February 10, 2021. FINDINGS: Breast Composition: There are scattered areas of fibroglandular density. There are no dominant masses or suspicious calcifications. Once again, there is evidence of bilateral nipple piercings. No other significant abnormalities are identified. There has been no significant change since the prior study. BI/SCRN MAMM (CAD)W/CYNDI BILAT IMPRESSION: Stable bilateral screening mammogram. Yearly follow-up mammogram recommended. (A) ASSESSMENT CATEGORY: BIRADS Category 2: Benign. A letter regarding these results will be sent to the patient by the facility within 30 days. Approximately 10% of breast cancers are not detected by mammography. A normal mammogram should not delay biopsy of a clinically suspicious abnormality. [id number] Electronically Signed: Moustapha Stanley MD at 8:16 EDT ,
== END | disposition home or self-care (01) ==
LOC: OPBI 15:41
PROVIDERS: PCP Family Medicine; Visit Provider Obstetrics & Gynecology
DX: Z12.31 Encounter for screening mammogram for malignant neoplasm of breast (principal); Z80.3 Family history of malignant neoplasm of breast
CPT/HCPCS: 77063; 77067

== ENCOUNTER 2023-03-13 07:22 | Day surgery (SDC) | payer OTHER, SELFPAY ==
[2023-03-13] VITALS (8 sets, daily range): BP systolic 91–117; BP diastolic 46–75; PULSE 60–73; RESP 16–18; TEMP 36.7–36.9; O2SAT 99–100; BMI 29.7
[2023-03-13] MEDS: Lactated Ringers 1,000 ML 15 ML IV (07:52)
--- NOTE | 2023-03-13 07:55 | H&P.OPEN ---
HPI - General General Date of Admission: 03/13/23 HPI Narrative FLAQUITO WILD, is a 52 F who presents for a second colonoscopy. Patient never had previous colonoscopy. Patient denies any family history of colon cancer. Patient denies any chronic abdominal pain/nausea/vomiting/reflux. Patient's bowel movements daily denies any blood. [facility] Medical History (Updated 03/08/23 @ 12:40 by Zoya Arias) Abnormal uterine bleeding Climacteric Hirsutism History of echocardiogram MRSA infection Multinodular goiter Multinodular goiter Obesity Psoriasis Smoker Wears glasses Home Medications ascorbic acid (vitamin C) 500 mg capsule 500 mg PO DAILY 12/26/21 [History Last Taken Unknown] b.nlf-ybe-akwdc-tia-ookp-zscmy 20-250-50 mg(d)20-200-100 mg(n) tablets (Black Cohosh Menopause Complex) 1 ea PO DAILY 12/26/21 [History Last Taken Unknown] cetirizine 10 mg tablet (Zyrtec) 10 mg PO DAILY PRN ALLERGIES 12/26/21 [History Last Taken Unknown] lactobacillus combination no.9 4 billion cell capsule (Adult 50 Plus Probiotic) 1 cell PO DAILY 12/26/21 [History Last Taken Unknown] ixekizumab 80 mg/mL subcutaneous auto-injector (Taltz Autoinjector) 80 mg subcut Q4W 12/29/21 [History Last Taken 02/28/23] ibuprofen 200 mg tablet (Advil) 400 mg PO Q8H PRN Pain 03/13/23 [History Last Taken 03/13/23 05:30] Allergy/AdvReac Type Severity Reaction Status Date / Time morphine AdvReac Mild nausea, Verified 03/13/23 07:36 dizziness meperidine [From Demerol] AdvReac Unknown nausea, Verified 03/13/23 07:36 dizziness Family History (Updated 01/24/23 @ 16:01 by Mitra Buchanan) Grandmother Breast cancer Mother Breast cancer, Onset Age: 70 Autoimmune disease Father Seizures Sister Colon polyps Surgical History delivery delivered History of History of endometrial biopsy Hx of tubal ligation Status post biopsy of thyroid gland (03/2020) Social History Smoking Status: Current some day smoker tobacco type: cigars alcohol intake: current details: social substance use type: does not use caffeine: Yes frequency: 3-4 times per week seatbelt use: always do you feel safe at home: Yes additional social history: Leopoldo- Fly [employer] Patient works at [employer] Past Medical/Surgical History Planned Operation Planned Operative Procedure/s: COLONOSCOPY Previous Hospitalizations/Surgeries HX Hospitalizations: No Any Problems With Anesthesia: No You/Your Family Experience Fever (Hyperthermia) With Anes: No Cholinesterase deficiency: No Cardiovascular Hx Hypertension: No Respiratory Hx Sleep Apnea: No Hx Respiratory Tract Infection/Cold (presently): No Do You Snore Loudly (louder than talking or can be heard): No Do You Often Feel Tired/ Fatigued/ Sleepy Dring Daytime?: No Has Anyone Observed You Stop Breathing During Sleep?: No Result (for STOP score): Negative Smoking Status: Current some day smoker Neurological Does patient have nerve stimulator: No Reproduction : No Miscellaneous Recent Exposure to Contagious Disease: No Allergies morphine Adverse Reaction (Mild, Verified 03/13/23 07:36) nausea, dizziness meperidine [From Demerol] Adverse Reaction (Unknown, Verified 03/13/23 07:36) nausea, dizziness Discharge Is Pt Admitted From a Prison, or a Penitentiary: No Who Could Help: SON After D/C, Where Do you Plan to Go: Return Home Vital Signs Vital Signs Vital Signs: 03/13/23 07:38 03/13/23 07:39 Temperature 98.0 F Temperature Source Temporal Pulse Rate 60 Respiratory Rate 18 Respiratory Pattern Normal Blood Pressure 117/75 Blood Pressure Mean 89 Blood Pressure Source Monitor Blood Pressure Position Semi-Fowlers Blood Pressure Location Left Arm Pulse Ox 100 Oxygen Delivery Method Room Air Weight Weight: 173 lb Body Mass Index (BMI) 29.7 Physical Exam Const alert, oriented x3 and no apparent distress HEENT normocephalic and head/scalp atraumatic Resp normal respiratory effort Cardio regular rate GI soft to palpation and non-tender; Negative for non-distended Palpation: Negative for guarding Extremity no clubbing, cyanosis or edema Neuro CN's II-XII intact bilaterally Psych mental status grossly normal Assessment & Plan Assessment/Plan (1) Encounter for screening for malignant neoplasm of colon: Surgery Risks - Colonoscopy I discussed with the patient the risks of the procedure: Yes Risks Include but are not Limited To: Risks include but are not limited to: Bleeding, perforation requiring further surgery, inability to complete colonoscopy requiring barium enema.
--- NOTE | 2023-03-13 08:45 | COLBX_PTH ---
PATIENT: FLAQUITO WILD LOC: EN U#:[id number] AGE/SX: 52/F ROOM: RE03/13/[address]: Dr. Bailey Humphries MD : 1970 BED: DIS: 03/13/2023 SPEC #: [id number] RECD: 03/13/23 10:20 STATUS: STACY RELouie #: [id number] CHIDI: 03/13/23 08:[address]: Bailey Humphries DEPT: SURGICAL PATHOLOGY RECD BY: Elizabeth Stiles ENTERED: 03/13/23 13:02 SP TYPE: COLON BX OTHR DR: Dr. Kameron Wright MD Tissues: Rectum, NOS Procedures: Surgery Specimen Level IV HEADER OPERATION: Colonoscopy ? open access (MAC) with biopsy PRE-OP DIAGNOSIS: Screening TISSUE SUBMITTED: Rectal biopsy abnormal tissue MICROSCOPIC DIAGNOSIS Rectum, biopsy: Focal denudation of mucosa. No evidence of inflammation. See comment. AM:shade 03/14/2023 COMMENT Clinical correlation is suggested. MICROSCOPIC DESCRIPTION Slides are reviewed. GROSS DESCRIPTION Received in fixative is one container labeled with the patient's name and designated rectal biopsy abnormal tissue. The specimen consists of one irregular fragment of light francisco soft tissue that measures 0.4 x 0.2 x 0.1 cm. The specimen is totally submitted in one cassette. / SJ:shade 03/13/2023 TC:5 CPT: 99503
--- NOTE | 2023-03-13 09:14 | OP.COLON_ITS ---
Patient Name: Yi Pillai Procedure Date: 03/13/2023 8:40 AM Date of : 1970 Age: 52 Procedure: Colonoscopy Indications: Screening for colorectal malignant neoplasm Providers: Bailey Humphries MD Referring MD: Bailey Humphries MD Medicines: Monitored Anesthesia Care Patient Profile: This is a 52 year old female. Last Colonoscopy: none. The patient's first colonoscopy is today. Complications: No immediate complications. Procedure: Pre-Anesthesia Assessment: - Prior to the procedure, a History and Physical was performed, and patient medications and allergies were reviewed. The patient's tolerance of previous anesthesia was also reviewed. The risks and benefits of the procedure and the sedation options and risks were discussed with the patient. All questions were answered, and informed consent was obtained. Prior Anticoagulants: The patient has taken no previous anticoagulant or antiplatelet agents. ASA Grade Assessment: Per anesthesia. After reviewing the risks and benefits, the patient was deemed in satisfactory condition to undergo the procedure. After I obtained informed consent, the scope was passed under direct vision. Throughout the procedure, the patient's blood pressure, pulse, and oxygen saturations were monitored continuously. The Colonoscope was introduced through the anus and advanced to the cecum, identified by the appendiceal orifice, ileocecal valve and palpation. The colonoscopy was performed without difficulty. The patient tolerated the procedure well. The quality of the bowel preparation was good. Scope In: 8:46:49 AM Scope Withdrawal Time 0 hours 8 minutes 13 seconds Scope Out: 8:59:44 AM Total Procedure Duration Time 0 hours 12 minutes 55 seconds Findings: The perianal and digital rectal examinations were normal. A few small-mouthed diverticula were found in the sigmoid colon and descending colon. There was a medium-sized lipoma, in the ascending colon. The exam was otherwise without abnormality on direct and retroflexion views. A localized area of mildly erythematous mucosa was found in the rectum. This was biopsied with a cold forceps for histology. Impression: - Diverticulosis in the sigmoid colon and in the descending colon. - Medium-sized lipoma in the ascending colon. - The examination was otherwise normal on direct and retroflexion views. - No specimens collected. Recommendation: - Discharge patient to home. - Resume previous diet. - Continue present medications. - Await pathology results. - Repeat colonoscopy in 10 years for screening purposes. Procedure Code(s): --- Professional --- 67591, PT, Colonoscopy, flexible; with biopsy, single or multiple Diagnosis Code(s): --- Professional --- Z12.11, Encounter for screening for malignant neoplasm of colon D17.5, Benign lipomatous neoplasm of intra-abdominal organs K57.30, Diverticulosis of large intestine without perforation or abscess without bleeding CPT copyright 2017 [employer]. All rights reserved. The codes documented in this report are preliminary and upon grass cutter review may be revised to meet current compliance requirements. MD Bailey Walker MD 03/13/2023 9:13:46 AM This report has been signed electronically. Number of Addenda: 0 Note Initiated On: 03/13/2023 8:40 AM
--- NOTE | 2023-03-13 09:15 | OP.CCLET_ITS ---
03/13/2023 Kameron Wright [address] [place] [address] Re : Colonoscopy procedure for Yi Pillai Dear Dr. Wright This procedure was performed on Monday, March 13, 2023. My impressions and recommendations are as follows: Impressions : - Diverticulosis in the sigmoid colon and in the descending colon. - Medium-sized lipoma in the ascending colon. - The examination was otherwise normal on direct and retroflexion views. - No specimens collected. Recommendations : - Discharge patient to home. - Resume previous diet. - Continue present medications. - Await pathology results. - Repeat colonoscopy in 10 years for screening purposes. My findings are described in the full procedure note, which is enclosed. If I can be of further assistance, please feel free to contact me at Doctor phone number(s): , Work: . Sincerely, MD Bailey Walker MD 03/13/2023 9:13:46 AM This report has been signed electronically.
== END 2023-03-13 10:02 | disposition home or self-care (01) ==
LOC: EN 07:22 → AC 07:23
PROVIDERS: PCP Family Medicine; Referring Provider Surgery; Visit Provider Surgery
PROC: 0DJD8ZZ Inspection of Lower Intestinal Tract, Via Natural or Artificial Opening Endoscopic (ICD-10-PCS; CPT 45378; principal; 2023-03-13 08:40)
DX: Z12.11 Encounter for screening for malignant neoplasm of colon (principal); K57.30 Diverticulosis of large intestine without perforation or abscess without bleeding; F17.200 Nicotine dependence, unspecified, uncomplicated; D17.5 Benign lipomatous neoplasm of intra-abdominal organs
CPT/HCPCS: 45380; 88305; J7120; J2405

== ENCOUNTER → 2023-04-06 | Outpatient (CLI) | payer OTHER, SELFPAY ==
[2023-04-07 10:56] LABS: Hepatitis B Core AB IgM Negative (Negative)
== END | disposition home or self-care (01) ==
LOC: LAB 11:32
PROVIDERS: PCP Family Medicine; Referring Provider Physician Assistant Medical; Visit Provider Physician Assistant Medical
DX: L40.0 Psoriasis vulgaris (principal); Z79.899 Other long term (current) drug therapy
CPT/HCPCS: 36415; 86705

== ENCOUNTER → 2023-04-13 | Outpatient (CLI) | payer OTHER, SELFPAY ==
[2023-04-16 16:09] LABS: QNTFERON TB Mitogen Value > 10.00 IU/mL (.); QNTFERON TB Nil Value 0.07 IU/mL (.); QNTFERON TB1+ Ag Value 0.04 IU/mL (.); QNTFERON TB2+ Ag Value 0.05 IU/mL (.); QNTIFERON TB Positive Criteria Negative (Negative)
== END | disposition home or self-care (01) ==
LOC: LAB 10:35
PROVIDERS: PCP Family Medicine; Referring Provider Physician Assistant Medical; Visit Provider Physician Assistant Medical
DX: L40.0 Psoriasis vulgaris (principal)
CPT/HCPCS: 86480

== ENCOUNTER → 2023-12-11 | Outpatient (CLI) | payer OTHER, SELFPAY ==
--- NOTE | 2023-12-11 17:22 | US_ITS ---
INDICATION: thyroid nodule EXAMINATION: Ultrasound US Thyroid (eg thyroid, parathyroid, parotid) TECHNIQUE: Rg scale and color doppler imaging was performed of the thyroid gland. COMPARISON: December 14 2022, December 05, 2022, December 06, 2021. FINDINGS: RIGHT THYROID LOBE: 4.1 x 1.4 x 1.4 cm. Mildly heterogeneous echotexture with normal vascularity. [ Nodules: 1: Upper pole 1.1 x 1.0 x 0.6 cm mixed cystic solid hypoechoic nodule, wider than tall with smooth margins and no calcifications, TI RAD 3, not significantly changed from December 06, 2021 2: Lower pole 0.5 x 0.2 x 0.4 cm solid hypoechoic nodule wider than tall smooth margins and small echogenic focus, TI RAD 5,, possibly new from prior exam. LEFT THYROID LOBE: 4.2 x 1.5 x 1.3 cm. Mildly heterogeneous echotexture with normal vascularity. [No thyroid nodules are present. ISTHMUS: 0.3 cm. No thyroid nodules are present. US/Thyroid IMPRESSION: Right thyroid possibly new 0.5 cm TI RAD 5 nodule and unchanged 1.1 cm TI RAD 3 nodule. One year follow-up ultrasound is recommended per TI RADS criteria. Electronically Signed: Balbir Grove MD at 10:14 EST ,
== END | disposition home or self-care (01) ==
LOC: US 17:20
PROVIDERS: PCP Family Medicine; Referring Provider Surgery; Visit Provider Surgery
DX: E04.1 Nontoxic single thyroid nodule (principal)
CPT/HCPCS: 76536

== ENCOUNTER → 2023-12-30 | Outpatient (CLI) | payer OTHER, SELFPAY ==
[2023-12-30 17:52] LABS: Free T3 2.6 pg/mL (2.18-3.98); T4 Free Direct 0.89 ng/dL (0.76-1.46); Thyroid Stim Hormone (TSH) 1.28 uIU/mL (0.358-3.74)
--- OUTSIDE RECORDS SUMMARY | 2023-12-31 00:03 | XMS RPT_ITS | CCD ---
Author Name Unknown Address [address] [place] [address] Organization [facility] Care Team Providers Care Grain Weigher Name Role Phone Agusto CHAUDHARI, Brooke Peña Unavailable Abby AVILA, Denise Billy Unavailable [phone] Medications Completed/Discontinued Medications Medication Drug Class(es) Dates Sig (Normalized) Sig (Original) Drug Treatment Unknown - unknown (3 sources) No information available. Problems Problem Classification Problem Date Documented Da te Episodic/Chronic Unclassified (3 sources) Screening mammography ; Translations: [Encounter for screening mammogram for malignant neoplasm of breast] Onset: 07-23-2017 07-23-2017 Results Test Name Value Interpretation Reference Range Facil ity Plan of Treatment Date Care Activity Detail Author Start: 10-25-2017 End: 10-25-[address] [facility] Start: 07-23-2017 End: 07-23-2017 Mammogram, screening Mammogram, Screening, both breasts [facility] Additional Source Comments FOR RECORDS PERTAINING TO PATIENTS WHO ARE OR HAVE BEEN ENROLLED IN A CHEMICAL DEPENDENCY/SUBSTANCEABUSE PROGRAM, SOME INFORMATION MAY BE OMITTED. This clinical summary was aggregated from multiple sources. Caution should be exercised in using it in the provision of clinical care. This summary normalizes information from multiple sources, and as a consequence, information in this document may materially change the coding, format and clinical context of patient data. In addition, data may be omitted in some cases. CLINICAL DECISIONS SHOULD BE BASED ON THE PRIMARY CLINICAL RECORDS. [employer] provides no warranty or guarantee of the accuracy or completeness of information in this document.
== END | disposition home or self-care (01) ==
PROVIDERS: PCP Family Medicine; Visit Provider Surgery
DX: E04.1 Nontoxic single thyroid nodule (principal)
CPT/HCPCS: 36415; 84439; 84443; 84481

== ENCOUNTER → 2024-01-10 | Outpatient (CLI) | payer OTHER, SELFPAY ==
--- OUTSIDE RECORDS SUMMARY | 2024-01-10 18:09 | XMS RPT_ITS | CCD ---
Author Name Unknown Address [address] [place] [address] Organization [facility] Care Team Providers Care Route Rider Supervisor Name Role Phone Agusto CHAUDHARI, Brooke Peña Unavailable Abby AVILA, Denise Billy Unavailable Medications Completed/Discontinued Medications Medication Drug Class(es) Dates [...] Author Start: 10-25-2017 End: 10-25-2017 Appointment Appointment [facility] Start: 07-23-2017 End: 07-23-2017 Mammogram, screening Mammogram, Screening, both breasts [facility] Additional Source Comments FOR RECORDS PERTAINING [...] BE BASED ON THE PRIMARY CLINICAL RECORDS. [employer] provides no warranty or guarantee of the accuracy or completeness of information in this document.
[2024-01-10 18:27] LABS: HIV - WCH Non-Reactive (Nonreactive)
[2024-01-13 11:07] LABS: HCV Quant. RNA PCR HCV Not Detected IU/mL (.); HSV 2 IgG < 0.91 index (0.00-0.90)
[2024-01-13 22:06] LABS: Chlamydia By Nucleic Acid AMP Negative (Negative); Gonococcus By Nucleic Acid AMP Negative (Negative)
[2024-01-15 17:07] LABS: HPV APTIMA, High Risk Negative (Negative)
== END | disposition home or self-care (01) ==
PROVIDERS: PCP Family Medicine; Referring Provider Obstetrics & Gynecology; Visit Provider Obstetrics & Gynecology
DX: Z20.2 Contact with and (suspected) exposure to infections with a predominantly sexual mode of transmission (principal); R30.0 Dysuria
CPT/HCPCS: 36415; 86695; 86696; 86703; 87077; 87086; 87088; 87186; 87491; 87522; 87591; 87624; 88175; G0145

== ENCOUNTER → 2024-03-03 | Outpatient (CLI) | payer OTHER, SELFPAY ==
--- NOTE | 2024-03-03 16:47 | BI_ITS ---
MAMMOGRAPHY - BILATERAL SCREENING REASON FOR EXAM: Female, 53 years old. Routine annual screening examination. PERTINENT HISTORY: Mother with breast cancer. Grandmother with breast cancer. TECHNIQUE: Digital bilateral breast cyndi (3D mammographic acquisition) in the CC and MLO projections. 2-D mediolateral oblique (MLO) and craniocaudad (CC) views of both breasts were obtained. CAD: Full Field Digital Mammography with Computer Added Detection was performed. COMPARISON: Comparison is made with prior study dated March 01, 2023 and February 23, 2022. FINDINGS: Breast Composition: There are scattered areas of fibroglandular density. There are no dominant masses or suspicious calcifications. No other significant abnormalities are identified. There has been no significant change since the prior study. BI/SCRN MAMM (CAD)W/CYNDI BILAT IMPRESSION: Stable bilateral screening mammogram. Yearly follow-up mammogram recommended. (A) ASSESSMENT CATEGORY: BIRADS Category 1: Negative. A letter regarding these results will be sent to the patient by the facility within 30 days. Approximately 10% of breast cancers are not detected by mammography. A normal mammogram should not delay biopsy of a clinically suspicious abnormality. [id number] Electronically Signed: Moustapha Stanley MD at 8:37 EDT ,
== END | disposition home or self-care (01) ==
LOC: OPBI 03-04 07:39
PROVIDERS: PCP Family Medicine; Referring Provider Obstetrics & Gynecology; Visit Provider Obstetrics & Gynecology
DX: Z12.31 Encounter for screening mammogram for malignant neoplasm of breast (principal); Z80.3 Family history of malignant neoplasm of breast
CPT/HCPCS: 77063; 77067

== ENCOUNTER → 2024-04-21 | Outpatient (CLI) | payer OTHER, SELFPAY ==
[2024-04-23 16:10] LABS: QNTFERON TB Mitogen Value > 10.00 IU/mL (.); QNTFERON TB Nil Value 0.01 IU/mL (.); QNTFERON TB1+ Ag Value 0.02 IU/mL (.); QNTFERON TB2+ Ag Value 0.02 IU/mL (.); QNTIFERON TB Positive Criteria Negative (Negative)
== END | disposition home or self-care (01) ==
LOC: LAB 16:24
PROVIDERS: PCP Family Medicine; Referring Provider Physician Assistant; Visit Provider Physician Assistant
DX: L40.0 Psoriasis vulgaris (principal); L24.9 Irritant contact dermatitis, unspecified cause; Z79.899 Other long term (current) drug therapy
CPT/HCPCS: 36415; 86480

== ENCOUNTER → 2024-10-06 | Outpatient (CLI) | payer OTHER, SELFPAY | END | disposition home or self-care (01) | PROVIDERS: PCP Family Medicine; Visit Provider Nurse Practitioner Family | DX: R30.0 Dysuria (principal) | CPT/HCPCS: 87086; 87088; 87186 ==

== ENCOUNTER → 2025-01-15 | Outpatient (CLI) | payer OTHER, SELFPAY ==
[2025-01-15 17:45] LABS: Hepatitis B Surface Antigen Nonreactive (Nonreactive); Syphilis Antibodies Nonreactive (Nonreactive)
[2025-01-15 19:30] LABS: HIV Nonreactive (Nonreactive)
[2025-01-19 06:08] LABS: Chlamydia By Nucleic Acid AMP Negative (Negative); Gonococcus By Nucleic Acid AMP Negative (Negative)
[2025-01-19 13:08] LABS: HCV Quant. RNA PCR HCV Not Detected IU/mL (.)
[2025-01-25 08:11] LABS: HPV Reflexed? NOT INDICATED
== END | disposition home or self-care (01) ==
PROVIDERS: PCP Family Medicine; Referring Provider Obstetrics & Gynecology; Visit Provider Obstetrics & Gynecology
DX: Z11.3 Encounter for screening for infections with a predominantly sexual mode of transmission (principal); Z12.4 Encounter for screening for malignant neoplasm of cervix
CPT/HCPCS: 36415; 86695; 86696; 86703; 86780; 87340; 87491; 87522; 87591; 88175; G0145

== ENCOUNTER → 2025-02-06 | Outpatient (CLI) | payer OTHER, SELFPAY ==
[2025-02-06 11:58] LABS: Absolute Lymphocyte Count 1.44 X10^3/uL (0.83-4.51); Absolute Neutrophil Count 3.3 X10^3/uL (2.0-7.7); Basophil# 0.05 X10^3/uL; Basophil% 0.9 % (0-1); Eosinophil# 0.03 X10^3/uL; Eosinophils% 0.6 % (0-5); Hematocrit 41.2 % (37-47); Hemoglobin 14.2 g/dL (12.0-15.0); Lymphocyte # 1.44 X10^3/ul (0.83-4.51); Lymphocyte % 26.7 % (19-41); Mean Corp Hgb Conc 34.5 g/dL (32-36); Mean Corpuscular Hgb 31.1 pg (27.0-32.0); Mean Corpuscular Volume 90.2 fL (81-99); Mean Platelet Vol. 10.4 fl (6.2-12.0); Monocyte# 0.52 X10^3/uL; Monocyte% 9.6 % (0-10); NRBC Flagged by Analyzer 0 % (0-5); Neutrophil # 3.34 X10^3/uL (2.7-7.7); Neutrophil % 61.8 % (47-70); Platelet Count 219 K/mm3 (150-450); RBC Distribution Width CV 11.9 % (11.6-14.6); RBC Distribution Width SD 38.4 fl (35.1-43.9); Red Blood Count 4.57 M/mm3 (4.2-5.4); White Blood Count 5.4 K/mm3 (4.4-11.0)
[2025-02-06 12:36] LABS: ALB/GLOB Ratio 1.4 RATIO (0.9-2.4); AST(SGOT) 21 U/L (<=31); Alanine Aminotransfer ALT/SGPT 30 U/L (<=34); Albumin, Serum 4.1 g/dL (3.5-5.0); Alkaline Phosphatase 104 U/L (35-104); Anion Gap 9 (5-15); BUN 15 mg/dL (4-19); BUN/Creat Ratio 17.3 RATIO (10-20); Calcium,Total 9.2 mg/dL (7.6-11.0); Carbon Dioxide 26.3 mmol/L (21.0-32.0); Chloride 104 mmol/L (98-108); Creatinine, Serum 0.88 mg/dL (0.70-1.20); EST Glomerular Filtration Rate 79 (>60); Glucose 112 mg/dL (70-99); Potassium 4.5 mmol/L (3.3-5.1); Protein, Total 7.1 g/dL (5.9-8.4); Sodium Level 139 mmol/L (133-145)
[2025-02-06 13:27] LABS: Cholesterol 182 mg/dL (<=200); High Density Lipoprotein 56 mg/dL; Low Density Lipoprotein Calc. 113 mg/dL; Triglycerides 63 mg/dL; Very Low Density Lipoprotein 13 mg/dL (5-40); cholesterol:hdl ratio screen 3.23
== END | disposition home or self-care (01) ==
LOC: LAB 11:39
PROVIDERS: PCP Family Medicine; Referring Provider Family Medicine; Visit Provider Family Medicine
DX: E04.1 Nontoxic single thyroid nodule (principal)
CPT/HCPCS: 36415; 80053; 80061; 84443; 85025

== ENCOUNTER → 2025-03-05 | Outpatient (CLI) | payer OTHER, SELFPAY ==
--- NOTE | 2025-03-05 15:30 | BI_ITS ---
EXAM: SCRN MAMM (CAD)W/CYNDI BILAT DATE: 03/05/2025 CLINICAL HISTORY: F, Age 54 y/o , SCREENING MAMMOGRAM BREAST CANCER RISK ASSESSMENT: Has not been calculated. TECHNIQUE: Bilateral screening digital breast tomosynthesis with 2D and 3D images. Computer aided detection. COMPARISON: Prior exam(s) dated 03/03/2024 and 03/01/2023. FINDINGS: TISSUE DENSITY: The breast tissue is composed of scattered area of fibroglandular density. Bilateral Breast Mammographic Findings: No significant masses, calcifications or other abnormalities are identified. Benign round microcalcifications are seen in both breasts. BI/SCRN MAMM (CAD)W/CYNDI BILAT IMPRESSION: OVERALL FINAL ASSESSMENT: BIRADS 2 BENIGN FINDING RECOMMENDATION: Routine annual follow-up in 1 Year A letter with findings and recommendations will be mailed to the patient. Reading Location: [id number]
== END | disposition home or self-care (01) ==
LOC: OPBI 14:57
PROVIDERS: PCP Family Medicine; Referring Provider Obstetrics & Gynecology; Visit Provider Obstetrics & Gynecology
DX: Z12.31 Encounter for screening mammogram for malignant neoplasm of breast (principal)
CPT/HCPCS: 77063; 77067

== ENCOUNTER → 2025-06-30 | Outpatient (CLI) | payer OTHER, SELFPAY ==
[2025-07-02 19:08] LABS: QNTFERON TB Mitogen Value > 10.00 IU/mL (.); QNTFERON TB Nil Value 0.04 IU/mL (.); QNTFERON TB1+ Ag Value 0.03 IU/mL (.); QNTFERON TB2+ Ag Value 0.04 IU/mL (.); QNTIFERON TB Positive Criteria Negative (Negative)
== END | disposition home or self-care (01) ==
LOC: MTLAB 16:17
PROVIDERS: PCP Family Medicine; Referring Provider Physician Assistant Medical; Visit Provider Physician Assistant Medical
DX: L40.0 Psoriasis vulgaris (principal)
CPT/HCPCS: 36415; 86480